=== PATIENT | male | born 1940 | race African-American/Black ===

== ENCOUNTER 2016-12-14 17:17 | Inpatient (IN) | payer OTHER ==
[~2016-12-14] VITALS: Ht 182.9 cm; Wt 92.7 kg
--- NOTE | ~2016-12-14 | HC ---
[facility] [place]ie [place] [address] CONSULTATION Name: DAVID CORRALES Room #: 446-P ADM IN M.R.#: [id number] Admission: 12/14/16 Attend Phys: Lani Salas Discharge: Date of : 38 Report #: [id number] THIS REPORT FOR: //name// CC: Viral Madison DATE OF SERVICE: 12/15/2016 REASON FOR CONSULTATION: Ventilator management. IMPRESSION: 1. Chronic respiratory failure. 2. Urinary tract infection. 3. History of quadriplegia with history of cervical spine fracture. 4. History of ileus. 5. Chronic anemia. 6. Protein calorie malnutrition. 7. Acute on chronic kidney injury. 8. Protein calorie malnutrition. 9. Hyperglycemia. 10. Microcytic anemia. 11. Difficult intravenous access. PLAN: Agree with current. We will continue current ventilator settings, antibiotics per ID, urology is to see for suprapubic catheter. may need a portacath for iv. HISTORY OF PRESENT ILLNESS: A 76-year-old male, well known to our service from [facility], history of chronic respiratory failure secondary to quadriplegia, unable to wean. He was admitted yesterday secondary to fever and lethargy. He is awake today and relates he is comfortable by nodding his head. PAST MEDICAL HISTORY: Surgeries per chart include liver biopsy, tracheostomy, PEG placement, IVC filter, suprapubic catheter. HOME MEDICATIONS: Included Pepcid, potassium, ascorbic acid, ceftriaxone, oxycodone, DuoNeb, buspirone, guaifenesin. ALLERGIES: GABAPENTIN, METHADONE and TRAZODONE. FAMILY HISTORY: Noncontributory. SOCIAL HISTORY: Negative tobacco or ETOH. REVIEW OF SYSTEMS: The patient related that he is comfortable. No chest pain, shortness of breath, or abdominal pain. Feels tired. [facility] [address] [place] [address] CONSULTATION Name: DAVID CORRALES Room #: 446-P [facility].#: [id number] Admission: 12/14/16 Attend Phys: Lani Salas Discharge: Date of : 38 Report #: [id number] PHYSICAL EXAMINATION: VITAL SIGNS: Temp 97.5, pulse 76, respirations 18, BP 86/50. LUNGS: Decreased breath sounds. HEART: Regular. ABDOMEN: Bowel sounds present. EXTREMITIES: Showed contractures, positive edema. GENITOURINARY: Suprapubic catheter in place. RADIOLOGIC: Chest x-ray showed no acute. LABORATORY DATA: A pH 7.47, pCO2 of 36, pO2 of 104, bicarbonate 25 on 30%, rate 12, tidal volume 500, PEEP of 5, gaseous distension of small bowel loops and colon, retained stools. White count 13, hemoglobin 8.9, platelets 299, no bands. BUN 37, creatinine 1.5, albumin 2. Urine culture pending; however, UA showed bacteria greater than 30, nitrite negative. Blood cultures so far negative. We will follow closely with you. <ELECTRONICALLY SIGNED> By: Rosie Marley MD 12/16/16 1407 1248 2131 Rosie Marley MD /nt
--- NOTE | ~2016-12-14 | D ---
[facility] [place] [address] DISCHARGE SUMMARY Name: DAVID CORRALES Room #: 446-P [facility] IN M.R.#: [id number] Admission: 12/14/16 Attend Phys: Lani Salas Discharge: 12/17/16 Date of : 38 Report #: [id number] THIS REPORT FOR: //name// CC: Viral Madison DATE OF SERVICE: 12/17/2016 FINAL DIAGNOSES: 1. Sepsis. 2. Complicated urinary tract infection. 3. Malfunctioning suprapubic catheter. 4. Chronic quadriplegia. 5. Chronic hypercapnic respiratory failure. 6. Ventilator dependence. 7. Chronic ileus. 8. Anemia of chronic disease. 9. Chronic pain syndrome. HOSPITAL COURSE: The patient was admitted with fever and initially treated for sepsis due to complicated UTI. It appears the suprapubic catheter was clogged and this was changed by the Urology Service. He was treated with empiric antibiotics. Blood cultures looked contaminated with gram positive cocci and urinalysis had multiple organisms, which were likely related to chronic suprapubic catheter. He had no further fever after his catheter was changed. He was stable on the ventilator and resuming his oral diet. PHYSICAL EXAMINATION: GENERAL: On the day of discharge, he was resting in bed, asleep and easily arousable. VITAL SIGNS: Stable. He was afebrile. LUNGS: Clear. HEART: Regular. ABDOMEN: Protuberant, soft, normoactive bowel sounds. EXTREMITIES: No edema. DISPOSITION: To return to [facility] ventilator unit under the care of Dr. Madison, continue chronic ventilator care with regular diet. I have signed off on his usual transfer medications and Dr. Marco Antonio Madison will address antibiotics. <ELECTRONICALLY SIGNED> By: Vinny Anaya MD 12/18/16 0950 1327 1711 Vinny Anaya MD /nt
--- NOTE | ~2016-12-14 | H ---
[facility] [place] [address] HISTORY AND PHYSICAL Name: DAVID CORRALES Room #: 446-P ADM IN M.R.#: [id number] Admission: 12/14/16 Attend Phys: Lani Salas Discharge: Date of : 38 Report #: [id number] THIS REPORT FOR: //name// CC: Viral Madison DATE OF SERVICE: 12/15/2016 CHIEF COMPLAINT: Fever and lethargy. HISTORY OF PRESENT ILLNESS: The patient is a 76-year-old gentleman who transferred from [facility] for evaluation of fever. He has a long-standing history of chronic respiratory failure and ventilator dependence related to quadriplegia from a remote cervical spine fracture. He has been on the ventilator over 5 years and is un-weanable. Recently, however, in the last day they noted temperature to 101 with lethargy and decreased urinary output. They were having difficulty flushing his suprapubic catheter. He has been transferred for evaluation and admitted. PAST MEDICAL HISTORY: History of alcohol abuse, cervical spine fracture with quadriplegia in 2001. He has had tracheostomy since 2001. He had PEG tube which has been removed, history of pulmonary embolus with an IVC filter in place, neurogenic bowel and bladder with suprapubic catheter, history of MRSA wounds, peripheral artery disease, osteomyelitis, chronic renal failure, depression and chronic ventilator dependence. PAST SURGICAL HISTORY: As above. FAMILY HISTORY: Noncontributory. SOCIAL HISTORY: Noncontributory. ALLERGIES: GABAPENTIN, METHADONE and TRAZODONE. MEDICATIONS: Pepcid, MiraLax, potassium, sodium chloride, vitamin C, recently ceftriaxone, Tums, oxycodone, albuterol, Ativan, BuSpar and baclofen. REVIEW OF SYSTEMS: He opens his eyes to his name; otherwise, no pertinent review. PHYSICAL EXAMINATION: VITAL SIGNS: Temperature 36.4, pulse 80, respirations 16 and blood pressure 121/67. GENERAL: He is awake and alert, in no distress. LUNGS: Clear. HEART: Regular. ABDOMEN: Protuberant, soft. Normoactive bowel sounds. A suprapubic catheter [facility] [address] [place] [address] HISTORY AND PHYSICAL Name: DAVID CORRALES Room #: 446-P ADM IN .R.#: [id number] Admission: 12/14/16 Attend Phys: Lani Salas Discharge: Date of : 38 Report #: [id number] with amenable urinary output. EXTREMITIES: With 1+ edema, rigid, quadriplegic and contractures throughout. LABORATORY DATA: Urinalysis had 2+ leukocytes, few white cells and many bacteria. White count was 13, hemoglobin 9. Creatinine 1.5. KUB suggested ileus. Chest x-ray did not show any infiltrate. ASSESSMENT: 1. Complicated urinary tract infection. 2. Febrile illness due to the complicated urinary tract infection. 3. Chronic hypoxic respiratory failure. 4. Ventilator dependence. 5. Chronic quadriplegia. 6. History of cervical spine fracture. 7. Chronic colonic ileus. 8. Anemia of chronic disease. 9. Severe protein-calorie malnutrition with albumin of 2. 10. Acute kidney injury. PLAN: I have started IV fluids. I will hold off on oral intake until he is more stable. Antibiotics have been ordered. I will ask the pulmonary and ID team to see him along with urology team to assess the function of the suprapubic catheter. <ELECTRONICALLY SIGNED> By: Vinny Anaya MD 12/17/16 1239 0843 0917 Vinny Anaya MD /nt
--- NOTE | ~2016-12-14 | HC ---
[facility] [place] [address] CONSULTATION Name: DAVID CORRALES Room #: 446- ADM IN M.R.#: [id number] Admission: 12/14/16 Attend Phys: Lani Salas Discharge: Date of : 38 Report #: [id number] THIS REPORT FOR: //name// CC: Viral Madison DATE OF SERVICE: 12/15/2016 ATTENDING PHYSICIAN: Dr. Vinny Anaya. REASON FOR EVALUATION: Fevers. HISTORY OF PRESENT ILLNESS: Chart reviewed, patient examined. This is a 76-year-old male with profound disability who normally resides at care home facility, is vent dependent, has multiple tubes including a suprapubic catheter, apparently has been nondysfunctional as well as enteral feeding tube, who presented with fevers, was found to be more lethargic than usual, unable to obtain any additional history. Chest x-ray was otherwise unremarkable. Adequate oxygenation, on 30% oxygen. CBC was with mildly elevated white count. Urinalysis, really not significant, pyuria, lactic acid of 1.5. He was started on broad spectrum therapy including piperacillin, tazobactam and vancomycin. Currently, he is afebrile. ALLERGIES: Listed to GABAPENTIN, TRAZODONE, and METHADONE. CURRENT MEDICATIONS: Include enoxaparin, ipratropium and albuterol inhaler, Zosyn, famotidine, vancomycin, p.r.n. analgesics, antiemetics. PAST MEDICAL HISTORY: Previous cervical spine fracture with quadriplegia. He is vent dependent, neurogenic bladder, he has got suprapubic catheter, he has got enteral feeding tube, history of PE, IVC filter, infectious complications including pneumonitis, UTIs. He has had a small-bowel obstruction, osteomyelitis, history of depression. SOCIAL HISTORY: Nonsmoker, no ethanol, no illicit drug use. FAMILY HISTORY: Noncontributory. REVIEW OF SYSTEMS: Not obtainable. PHYSICAL EXAMINATION: GENERAL: Appears chronically ill. He is supine, maintained on the vent via trach. He is minimally responsive at this point, does briefly open his eyes but there is not hard evidence he is tracking. He is chronically ill, undernourished. VITAL SIGNS: Temperature 97.6, pulse 80, respirations 16, blood pressure 121/67. [address] [address] CONSULTATION Name: DAVID CORRALES Room #: 6[facility] IN M.R.#: [id number] Admission: 12/14/16 Attend Phys: Lani Salas Discharge: Date of : 38 Report #: [id number] SKIN: Warm, dry, no rashes. HEENT: Remarkable for the tracheostomy. NECK: Residual neck stiffness, I think. LUNGS: Few crackles. HEART: Regular. I do not appreciate a murmur. ABDOMEN: Somewhat distended. There is no overt rigidity or peritoneal signs. GENITOURINARY AND RECTAL: Deferred. LABORATORY DATA: As described above. Lactic acid 1.5. Urinalysis did have some bacteriuria, although 0-5 white cells. Urine cultures in progress. Sodium 136, potassium 3.8, chloride 104, bicarbonate is 26, BUN and creatinine 37 and 1.5, glucose of 152. LFTs unremarkable. Albumin 2.0, total protein 6.8, estimated GFR of 55. CBC: White count of 13.0, H and H 8.9 and 27.4, platelets of 299. ABGs, pH 7.469, pCO2 of 35.7, pO2 of 104.4 on 30%. Chest x-ray without acute process. Blood cultures in progress as well. ASSESSMENT AND PLAN: Febrile illness. The patient is certainly at high risk for infectious complications, usual sources including pneumonitis, urinary tract infection evidence is not there. We will await blood cultures. Would continue broad-spectrum antimicrobial therapy to the fact that he is afebrile at this point, may have been a transient sort of thing or perhaps viral. We will monitor expectantly. <ELECTRONICALLY SIGNED> By: Hubert Thacker MD 12/16/16 0738 0849 1225 Hubert Thacker MD /nt
--- NOTE | ~2016-12-14 | HC ---
[facility] [place] [address] CONSULTATION Name: DAVID CORRALES Room #: 446-P [facility] IN M.R.#: [id number] Admission: 12/14/16 Attend Phys: Lani Salas Discharge: 12/17/16 Date of : 38 Report #: [id number] THIS REPORT FOR: //name// CC: Viral Madison DATE OF SERVICE: 12/17/2016 PERSONAL PHYSICIAN: Manuel Madison MD CHIEF COMPLAINT: Multiple decubitus ulcers. HISTORY OF PRESENT ILLNESS: This is a 76-year-old black male who was a resident of [facility] who was transferred to the [facility] for evaluation of fever. The patient has a chronic ____ respiratory failure secondary to quadriplegia from a cervical spine fracture. The patient also has had multiple decubitus ulcers throughout the years. The patient still has decubitus ulcer in his sacrococcygeal region as well as his right lateral calf. I have been asked to assist in the care of his at this time. The patient himself is unable to give any history whatsoever. PAST MEDICAL HISTORY: Per old records include history of alcohol abuse, cervical spine fracture with quadriplegia in 2001, tracheostomy since 2001, previous PEG tube, which now has been removed but still has a nonhealing wound, history of pulmonary emboli, multiple decubitus ulcers, suprapubic catheter, previous osteomyelitis. CURRENT MEDICATIONS: Multiple. I reviewed the patient's medication list. DRUG ALLERGIES: GABAPENTIN, METHADONE, and TRAZODONE. SOCIAL HISTORY: The patient resides in a care facility on a care home ventilator unit. FAMILY HISTORY AND REVIEW OF SYSTEMS: Unobtainable because of the patient's altered mental status. PHYSICAL EXAMINATION: HEENT: Normocephalic, atraumatic. Mucous membranes are dry. Pupils are round. Sclerae are white. NECK: Tracheostomy is in place without excoriation. BACK: Nontender. LUNGS: Diminished breath sounds heard throughout with scattered rhonchi. CHEST: Nontender. HEART: Tachycardiac without murmur. ABDOMEN: Distended. There is an old PEG tube site from the mid portion of the abdomen, which has a serosanguineous drainage noted but no significant [address] [address] CONSULTATION Name: DAVID CORRALES Room #: 446-P [facility] IN M.R.#: [id number] Admission: 12/14/16 Attend Phys: Lani Salas Discharge: 12/17/16 Date of : 38 Report #: [id number] tunneling, tracking or undermining. Suprapubic catheter was in place. EXTREMITIES: The patient has 1+ edema in the lower extremities. The patient has rigid quadriplegia with contracture on the right lateral calf, has a stage III decubitus ulcer, which is a mix of approximately 80% granulation tissue, 20% yellow slough. Periwound is otherwise intact without signs of cellulitis. On the dorsal aspect of the right foot is an old healed abrasion. Bilateral heels are intact. Evaluation of sacrococcygeal region reveals a stage IV decubitus ulcer with palpable bone, mainly slough and mix of slight amount of granulation tissue. Periulcer itself is mildly ____. NEUROLOGIC: Cranial nerves 2-12 grossly intact. The patient has a quadriplegia. LABORATORY DATA: White count of 13, hemoglobin 9.0. IMPRESSION: 1. Fever consistent with the urinary tract infection. 2. Stage IV decubitus ulcer, sacrococcygeal region. 3. Stage III decubitus ulcer, right lateral lower extremity in the calf region. 4. History of chronic quadriplegia secondary to cervical spine fracture. 5. Severe protein-calorie malnutrition with albumin of 2.0. 6. Nonhealing PEG tube site abdominal wall. 7. Chronic ventilator dependent. PLAN: At this time, we will start packing the stage IV decubitus ulcer with Dakin's moist gauze and cover with ABD. This will be done once daily. The right lateral calf ulceration will be covered with Maxorb AG and an ABD, cover this once daily. Put an Optifoam dressing over the abdominal wall wound, have this changed every 1 to 2 days and p.r.n. ____. The patient was started on low air loss mattress and will have him be turned every 2 hours. I appreciate the ability to consult this patient. <ELECTRONICALLY SIGNED> By: Jose Cook MD 12/19/16 0825 1754 0004 Jose Cook MD /nt
--- NOTE | ~2016-12-14 | EKG ---
[place] [address] [facility] [place] [address] ELECTROCARDIOGRAM REPORT Name: DAVID COR[facility]ALES [id number] Admission: 12/14/16 Attend Phys: Discharge: Date of : 38 Report #: [id number] THIS REPORT FOR: //name// [facility] ED Test Date: 2016-12-14 Test Time: 19:06:06 Pat Name: DAVID CORRALES Department: Room: Gender: Molder Trimmer: [id number] : 1940 Requested By: Ruthy Pereyra Order Number: [id number] MD: Reagan Murrieta Measurements Intervals [place] Rate: 98 P: 58 MS: 144 QRS: 3 QRSD: 90 T: 132 QT: 328 QTc: 419 Interpretive Statements Sinus rhythm Probable anteroseptal infarct, old Nonspecific T abnormalities, lateral leads Compared to ECG 08/18/2015 14:07:42 Myocardial infarct finding now present Sinus bradycardia no longer present T-wave abnormality still present Electronically Signed On 12-14-2016 19:32:51 CDT by Reagan Murrieta [email or web address] <ELECTRONICALLY SIGNED> By: Reagan Murrieta MD 12/14/16 1932 05 05 Reagan Murrieta MD /EPI
--- NOTE | ~2016-12-14 | EKG ---
[address] [address] ELECTROCARDIOGRAM REPORT Name: ANTONIDAVID Room #: 446-P ADM IN M.R.#: [id number] Admission: 12/14/16 Attend Phys: Lani Salas Discharge: Date of : 38 Report #: [id number] THIS REPORT FOR: //name// [facility] ED Test Date: 2016-12-14 Test Time: 21:15:48 Pat Name: DAVID CORRALES Department: Room: 446 Gender: M Cognos: ED : 1940 Requested By: Marco Antonio Merrill Order Number: [id number] MD: Reagan Murrieta Measurements Intervals [place] Rate: 134 P: 47 SC: 144 QRS: 1 QRSD: 93 T: 122 QT: 288 QTc: 430 Interpretive Statements Sinus tachycardia with irregular rate Probable anteroseptal infarct, old Repolarization abnormality, prob rate related Compared to ECG 12/14/2016 19:06:06 Early repolarization now present Sinus rhythm no longer present T-wave abnormality no longer present Myocardial infarct finding still present Electronically Signed On 12-16-2016 22:15:16 CDT by Reagan Murrieta [email or web address] <ELECTRONICALLY SIGNED> By: Reagan Murrieta MD 12/16/162214 14 14 Reagan Murrieta MD /EPI
--- NOTE | ~2016-12-14 | HC ---
[facility] [place] [address] CONSULTATION Name: DAVID CORRALES Room #: 446-P ADM IN M.R.#: [id number] Admission: 12/14/16 Attend Phys: Lani Salas Discharge: Date of : 38 Report #: [id number] THIS REPORT FOR: //name// CC: Viral Madison CHIEF COMPLAINT: Urinary retention. HISTORY OF PRESENT ILLNESS: The patient is a very pleasant 76-year-old gentleman who is being seen today at the request Dr. Anaya for evaluation and management of the urinary retention as it pertains to the suprapubic tube. Specifically, he was admitted with fever and lethargy and has bacteremia. Currently, cultures are pending. He has a longstanding chronic respiratory failure with ventilator dependence related quadriplegia from a remote cervical spine injury. He is managed with a suprapubic tube. The nurses were having difficulties flushing this. The suprapubic tube was exchanged and is now draining well. ALLERGIES: GABAPENTIN, TRAZODONE and METHADONE. ILLNESSES: History of alcohol abuse, cervical spine fracture in 2001, neurogenic bladder, neurogenic bowel, history of MRSA, peripheral artery disease, osteomyelitis, chronic renal failure, depression, ventilator dependent. PAST SURGICAL HISTORY: Include tracheostomy, surgeries related to spine fracture, PEG tube placement, IVC for pulmonary embolus. FAMILY HISTORY AND SOCIAL HISTORY: Noncontributory. MEDICATIONS: Refer to the med reconciliation sheet. PHYSICAL EXAMINATION: He is awake and alert, on a ventilator able to whisper. Temperature is 36.8, blood pressure 72/40, pulse 83. Suprapubic tube site is intact. There is some the site. Urine is dark karis and draining well. LABORATORY DATA: Sodium is 141, potassium 3.7, chloride 109, CO2 29, BUN 35, creatinine 1.4. White count on 12/14/2016 was 13.0, hemoglobin 8.9, hematocrit 27.4, platelets 299,000. Blood culture shows gram-positive cocci in clusters, susceptibilities are pending. Urine culture is greater than 100,000 rods. Normal genitourinary irma and greater than 100,000 gram-negative rods x 3 and greater than 100,000 colony forming units per mL of normal genital urethral irma. IMPRESSION: Neurogenic bladder, managed with suprapubic tube. [facility] [address] [place] [address] CONSULTATION Name: CORRALESDAVID Room #: 446-P ADM IN M.R.#: [id number] Admission: 12/14/16 Attend Phys: Lani Salas Discharge: Date of : 38 Report #: [id number] PLAN: I would recommend the suprapubic tube be exchanged monthly. We will intervene further if called. By: 0802 1301 Vinny Ganies MD /re
[~2016-12-14 17:17] MED LIST: ACCUNEB SO1.25 MG/1 INH; ACETAMINOP160 MG/12 PO; ADULT WAL-100 MG/5 M PO; ALBUTEROL2.5 MG/31 IH; ALBUTEROL2.5 MG/31 INH; ALLERGY10 MG PO; ANTACID500 MG PO; APAP650 PO; ARGINAID POWDE1 EACH PO; ASPIRIN325 PT; ATIVAN0.5 MG PO; ATIVAN1 MG PO; ATROPINE 1%1 %/2 M1 SUBLING; BACLOFEN 10MG T10 M1 PO; BACLOFEN 10MG T10 MG PO; BACLOFEN20 MG PO; BACTRIM DS TAB1 EACH PO; BACTRIM DS TAB1 EACH PT; BETADINE30 ML; BISACODYL SUPP10 MG RECTAL; BUSPIRONE HCL10 MG PO; CEFTRIAXON1 GM/50 ML IVPB; CEFTRIAXONE40 MG/M1 IM; CELEXA 10 MG TA10 M1 PER TUBE; CEPACOL SORE T1 EAC2 MUCOUS MEM; CEPACOL SORE T1 EAC7 MM; CEPACOL SORE T1 EAC7 PO; CERTA-VITE PER TUBE; CHLORASEPTIC20 ML MM; CITALOPRAM PG; DAKIN'S473 M1 MC; DAKINS TOP; DOCUSATE S50 MG/5 M2 GT; DOXYCYCLINE 10100 MG PO; DUONEB 2.5-0.5 M3 ML INH; GLUCERNA1 EACH PO; GLYCOLAX POWDER17 G1 PT; JUVEN PACKET1 EACH PO; K-DUR10 MEQ PO; KLOR-CON; KLOR-CON 1010 MEQ PO; LEVAQUIN 500 M500 M1 PO; LEVAQUIN 500 M500 M2 PO; LIORESAL 10 MG10 MG PO; MAXIPIME 2 GM AD2 GM IV; METOCLOPRAM5 MG/5 M2 PER TUBE; MILK OF MA2400 MG/10 PO; MIRALAX17 GM PER TUBE; MIRALAX17 GM PO; NORMAL SALINE FL5 ML; NOVOLIN N100 UNIT/1 SQ; NOVOLOG100 UNIT/1; NOVOLOG100 UNIT/1 SQ; OXYCODONE HCL15 MG PT; PEPCID20 MG PO; POTASSIUM20 MEQ/15 PER TUBE; POTASSIUM20 PER TUBE; PREVACID DIS; ROBITUSSIN100 MG/53 PO; ROXICODONE5 MG PO; SODIUM CHLORID IV; SODIUM CHLORIDE1 G2 PO; SSD CREAM 1% 5050 GM TOP; STOOL SOFT50 MG/5 ML PER TUBE; TEARS NATURALE1 EACH OPHTHALMIC; THERAPEUTIC-M1 EAC2 PT; TOBRAMYCIN300 MG/5 M INH; TUMS PO; TYLENOL325 MG PER TUBE; VITAMIN C250 MG PO; VITAMINC500 PO; VITCB500GO PO; XEROFORM PETRO1 EAC1 TP; ZINC OXIDE60 GM TP; ZINC SULFATE 2220 M1 PT; ZYVOX600 MG PO
[2016-12-14 17:20] VITALS: BP 71/36
[2016-12-14 18:04] LABS: ABG SAMPLE TYPE ARTERIAL; BE(vivo) 1.8 mmol/L (-2 to +3); HCO3 25.3 mmol/L (22.0-26.0); LACTATE 1.15 mmol/L (0.5-2.0); O2(CT) 15.2 mL/dL (15.0-23.0); O2Hb 97.2 % (92.0-98.0); PCO2 35.7 mmHg (35.0-45.0); PO2 104.4 mmHg (80.0-100.0); STICK SITE L.FEMORAL; pH 7.469 (7.360-7.450); sO2 98.1 % (92.0-98.0); tCO2 26.4 mmol/L (24.0-30.0)
[2016-12-14 18:05] LABS: TIDAL VOLUME 500 ml
[2016-12-14 21:03] LABS: BASOPHILS 0.4 % (0.0-2.0); EOSINOPHILS 0.6 % (0.0-3.0); HEMATOCRIT 27.4 % (42.0-52.0); HEMOGLOBIN 8.9 gm/dL (14.0-18.0); LYMPHOCYTES 10.7 % (24.0-44.0); MCH 25.4 pg (26.0-34.0); MCHC 32.5 g/dL (28.0-37.0); MCV 78.1 fL (80.0-100.0); MONOCYTES 11.5 % (1.0-8.0); PLATELET COUNT 299 thou/uL (150-400); POLYS 76.8 % (36.0-66.0); RBC 3.51 mil/uL (4.50-6.00); RDW 17.3 % (10.5-14.5)
[2016-12-14 21:04] LABS: MANUAL DIFF NO
[2016-12-14 21:07] LABS: ANION GAP 6 mmol/L (7-16); BUN 37 mg/dL (7-18); CALCIUM 7.6 mg/dL (8.5-10.1); CHLORIDE 104 mmol/L (98-107); CO2 26 mmol/L (21-32); CREATININE 1.5 mg/dL (0.7-1.3); GLUCOSE 152 mg/dL (74-106); POTASSIUM 3.8 mmol/L (3.5-5.1); SODIUM 136 mmol/L (136-145)
[2016-12-14 21:17] LABS: ALKALINE PHOSPHATASE 81 U/L (46-116); MAGNESIUM 2.3 mg/dL (1.8-2.4); NT-PRO BRAIN NAT PEPTIDE 240 pg/mL (<300); SGOT 17 U/L (15-37); SGPT 11 U/L (30-65); TOTAL BILIRUBIN 0.8 mg/dL (<0.1-1.0); TOTAL PROTEIN 6.8 g/dL (6.4-8.2); TROPONIN-I < 0.04 ng/mL (<0.04-0.07)
[2016-12-14 21:44] LABS: URINE BILIRUBIN NEGATIVE (Negative); URINE BLOOD TRACE (Negative); URINE COLOR YELLOW; URINE GLUCOSE-RANDOM* NEGATIVE (Negative); URINE KETONES NEGATIVE (Negative); URINE LEUKOCYTES-REFLEX 2+ (Negative); URINE PROTEIN (DIPSTICK) 1+ (Negative); URINE UROBILINOGEN 0.2 E.U./dl (0.2-1.0)
[2016-12-14 22:03] LABS: CRYSTALS None Seen /LPF (None Seen); SQUAMOUS None Seen /LPF (0-3)
[2016-12-14 22:04] LABS: CASTS None Seen /LPF (None Seen); URINE RBC 0-2 Rare /HPF (0-2); URINE WBC-REFLEX 0-5 Rare /HPF (0-5)
[2016-12-14 22:55] VITALS: BP 94/56
[2016-12-14 23:30] VITALS: BP 99/60
[2016-12-15] VITALS (8 sets, daily range): BP systolic 77–121; BP diastolic 40–67
[2016-12-15 12:55] LABS: CALCIUM 7.6 mg/dL (8.5-10.1); CREATININE 1.4 mg/dL (0.7-1.3); POTASSIUM 3.7 mmol/L (3.5-5.1)
[2016-12-16 03:20] VITALS: BP 72/40
[2016-12-16 08:22] VITALS: BP 105/49
[2016-12-16 08:54] LABS: HEMATOCRIT 24.3 % (42.0-52.0); HEMOGLOBIN 8.2 gm/dL (14.0-18.0); MCH 26.2 pg (26.0-34.0); MCHC 33.9 g/dL (28.0-37.0); MCV 77.5 fL (80.0-100.0); RBC 3.13 mil/uL (4.50-6.00); RDW 17.4 % (10.5-14.5); WBC 8.2 thou/uL (4.0-11.0)
[2016-12-16 09:03] LABS: CALCIUM 7.3 mg/dL (8.5-10.1)
[2016-12-16 12:34] VITALS: BP 115/59
[2016-12-16 16:30] VITALS: BP 100/52
[2016-12-16 20:30] VITALS: BP 105/60
[2016-12-17 00:46] VITALS: BP 119/57
[2016-12-17 04:00] VITALS: BP 133/67
[2016-12-17 07:45] VITALS: BP 103/47
[2016-12-17 13:49] LABS: ABSOLUTE NEUTROPHILS 6.4 thou/uL (1.4-8.2); BASOPHILS 0.3 % (0.0-2.0); EOSINOPHILS 7.6 % (0.0-3.0); HEMATOCRIT 26.9 % (42.0-52.0); HEMOGLOBIN 8.9 gm/dL (14.0-18.0); LYMPHOCYTES 13.1 % (24.0-44.0); MCHC 33.2 g/dL (28.0-37.0); MCV 78.5 fL (80.0-100.0); MONOCYTES 7.7 % (1.0-8.0); PLATELET COUNT 291 thou/uL (150-400); POLYS 71.3 % (36.0-66.0); RBC 3.43 mil/uL (4.50-6.00); RDW 17.5 % (10.5-14.5); WBC 8.9 thou/uL (4.0-11.0)
[2016-12-17 13:51] LABS: MANUAL DIFF NO
[2016-12-17 13:59] LABS: CALCIUM 8.2 mg/dL (8.5-10.1); CREATININE 0.9 mg/dL (0.7-1.3)
== END 2016-12-17 15:24 | DRG 871 ==
LOC: ER 17:17 → EROBS 21:13 → 4S 21:13
PROVIDERS: Emergency Medicine; Internal Medicine Geriatric Medicine; Physician Assistant
PROC: 5A1945Z Respiratory Ventilation, 24-96 Consecutive Hours (ICD-10-PCS; principal; 2016-12-14)
DX: A41.9 Sepsis, unspecified organism (principal); G82.50 Quadriplegia, unspecified; E43 Unspecified severe protein-calorie malnutrition; G93.40 Encephalopathy, unspecified; L89.154 Pressure ulcer of sacral region, stage 4; L89.893 Pressure ulcer of other site, stage 3; N39.0 Urinary tract infection, site not specified; N17.9 Acute kidney failure, unspecified; K56.7 Ileus, unspecified; Z99.11 Dependence on respirator [ventilator] status; I73.9 Peripheral vascular disease, unspecified; F32.9 Major depressive disorder, single episode, unspecified; Z68.27 Body mass index [BMI] 27.0-27.9, adult; R73.9 Hyperglycemia, unspecified; G47.33 Obstructive sleep apnea (adult) (pediatric); N31.9 Neuromuscular dysfunction of bladder, unspecified; G89.4 Chronic pain syndrome; D63.8 Anemia in other chronic diseases classified elsewhere; Z79.899 Other long term (current) drug therapy; Z87.81 Personal history of (healed) traumatic fracture; Z93.0 Tracheostomy status; Z93.1 Gastrostomy status; Z86.711 Personal history of pulmonary embolism; Z88.6 Allergy status to analgesic agent; Z88.8 Allergy status to other drugs, medicaments and biological substances
CPT/HCPCS: 10100

== ENCOUNTER 2017-02-19 14:47 | Inpatient (IN) | payer OTHER ==
[~2017-02-19] VITALS: Ht 182.9 cm; Wt 89.1 kg
[2017-02-19 14:48] VITALS: BP 158/77
[2017-02-19 16:38] LABS: ABSOLUTE NEUTROPHILS 7.9 thou/uL (1.4-8.2); BASOPHILS 0.6 % (0.0-2.0); EOSINOPHILS 3.7 % (0.0-3.0); HEMATOCRIT 27.6 % (42.0-52.0); HEMOGLOBIN 9.1 gm/dL (14.0-18.0); LYMPHOCYTES 12.6 % (24.0-44.0); MCH 25.9 pg (26.0-34.0); MCV 78.6 fL (80.0-100.0); PLATELET COUNT 381 thou/uL (150-400); POLYS 76.1 % (36.0-66.0); RBC 3.51 mil/uL (4.50-6.00); RDW 16.8 % (10.5-14.5); WBC 10.4 thou/uL (4.0-11.0)
[2017-02-19 16:39] LABS: MANUAL DIFF NO
[2017-02-19 16:48] LABS: CALCIUM 8.8 mg/dL (8.5-10.1); CREATININE 0.9 mg/dL (0.7-1.3); POTASSIUM 3.7 mmol/L (3.5-5.1)
[2017-02-19 16:52] LABS: ALBUMIN 2.4 g/dL (3.4-5.0); DIRECT BILIRUBIN 0.2 mg/dL (<0.1-0.3); TOTAL BILIRUBIN 0.4 mg/dL (<0.1-1.0); TOTAL PROTEIN 8.2 g/dL (6.4-8.2)
[2017-02-19] MEDS ORDERED: VITAMINC500 PO (17:43)
[2017-02-19] MEDS ORDERED: BUSPIRONE HCL10 MG PO (17:44)
[2017-02-19] MEDS ORDERED: ARGINAID POWDE1 EACH PO (17:44)
[2017-02-19 20:40] VITALS: BP 141/79
[2017-02-19 21:03] VITALS: BP 92/63
[2017-02-19] MEDS ORDERED: ANTACID500 MG PO (22:33)
[2017-02-19] MEDS ORDERED: ARTIFICIAL TEA1 EACH INTRAOCULR (22:34)
[2017-02-19] MEDS ORDERED: ROBITUSSIN100 MG/53 PO (22:35)
[2017-02-19] MEDS ORDERED: MAPAP160 MG/51 PO (22:37)
[2017-02-19] MEDS ORDERED: ALBUTEROL2.5 MG/3 M INH (22:42)
[2017-02-20] VITALS: BP 124/74
[2017-02-20 03:10] VITALS: BP 102/64
[2017-02-20 07:47] VITALS: BP 127/71
[2017-02-20 10:41] LABS: HEMOGLOBIN 8.9 gm/dL (14.0-18.0); MCH 25.8 pg (26.0-34.0); MCHC 32.8 g/dL (28.0-37.0); MCV 78.4 fL (80.0-100.0); RBC 3.44 mil/uL (4.50-6.00); RDW 16.5 % (10.5-14.5); WBC 6.8 thou/uL (4.0-11.0)
[2017-02-20 10:47] LABS: CALCIUM 8.8 mg/dL (8.5-10.1); CREATININE 0.7 mg/dL (0.7-1.3); POTASSIUM 3.2 mmol/L (3.5-5.1)
[2017-02-20 11:15] VITALS: BP 122/68
[2017-02-20 13:36] LABS: ABG SAMPLE TYPE ARTERIAL; BE(vivo) 2.8 mmol/L (-2 to +3); HCO3 27.5 mmol/L (22.0-26.0); LACTATE 0.78 mmol/L (0.5-2.0); O2(CT) 13.6 mL/dL (15.0-23.0); PCO2 42.8 mmHg (35.0-45.0); PO2 119.5 mmHg (80.0-100.0); pH 7.425 (7.360-7.450); sO2 98.4 % (92.0-98.0); tCO2 28.8 mmol/L (24.0-30.0)
[2017-02-20 13:37] LABS: STICK SITE R.RADIAL; TIDAL VOLUME 500 ml
[2017-02-20 15:57] VITALS: BP 107/66
[2017-02-20 20:00] VITALS: BP 118/63
[2017-02-21 04:00] VITALS: BP 148/85
[2017-02-21 07:04] LABS: CALCIUM 8.3 mg/dL (8.5-10.1); CREATININE 0.7 mg/dL (0.7-1.3); POTASSIUM 3.1 mmol/L (3.5-5.1)
[2017-02-21 07:52] VITALS: BP 161/83
[2017-02-21 16:14] LABS: CALCIUM 8.7 mg/dL (8.5-10.1); CREATININE 0.7 mg/dL (0.7-1.3); MAGNESIUM 1.8 mg/dL (1.8-2.4); POTASSIUM 3.5 mmol/L (3.5-5.1)
[2017-02-21 19:48] VITALS: BP 143/61
[2017-02-22 04:19] VITALS: BP 162/79
[2017-02-22 07:28] VITALS: BP 148/85
== END 2017-02-22 14:59 | DRG 391 ==
LOC: ER 14:47 → 4W 19:22 → EROBS 19:22 → 4W 20:36
PROVIDERS: Emergency Medicine; Internal Medicine; Internal Medicine Geriatric Medicine; Internal Medicine Pulmonary Disease
PROC: 5A1945Z Respiratory Ventilation, 24-96 Consecutive Hours (ICD-10-PCS; principal; 2017-02-19)
DX: K59.8 Other specified functional intestinal disorders (principal); G82.50 Quadriplegia, unspecified; J98.11 Atelectasis; J96.10 Chronic respiratory failure, unspecified whether with hypoxia or hypercapnia; Z99.11 Dependence on respirator [ventilator] status; I73.9 Peripheral vascular disease, unspecified; F32.9 Major depressive disorder, single episode, unspecified; K56.41 Fecal impaction; L89.90 Pressure ulcer of unspecified site, unspecified stage; Z99.81 Dependence on supplemental oxygen; Z93.0 Tracheostomy status; Z88.6 Allergy status to analgesic agent; Z93.1 Gastrostomy status; Z86.711 Personal history of pulmonary embolism; Z87.01 Personal history of pneumonia (recurrent); Z88.8 Allergy status to other drugs, medicaments and biological substances; Z79.899 Other long term (current) drug therapy
CPT/HCPCS: 10045